=== PATIENT | female | born 1965 | race Caucasian/White ===

== ENCOUNTER 2023-05-05 09:06 | Emergency (ER) | payer SELFPAY ==
--- NOTE | ~2023-05-05 | XR_ITS ---
XR finger 1st RT min 2V DATE: 05/05/2023 09:38 INDICATION: Smashed finger intra-articular on 05/04/2023. Distal first digit pain TECHNIQUE: 3 views of first digit COMPARISON: None FINDINGS: No fracture or dislocation, periosteal reaction or bone destruction, radiopaque soft tissue foreign body or subcutaneous emphysema. IMPRESSION: Negative Reviewed, dictated and finalized at location B. IMPRESSION: Negative
[2023-05-05 09:14] VITALS: BP 145/75; PULSE 77; RESP 20; TEMP 36.9; O2SAT 100
--- NOTE | 2023-05-05 10:06 | ED.UPPEXIN ---
HPI - Extremity Injury (Upper) General Chief Complaint: Extremity Injury, Upper Stated Complaint: right thumb injury Time Seen by Provider: 05/05/23 10:06 Source: patient, RN notes reviewed and old records reviewed Mode of arrival: ambulatory Limitations: no limitations History of Present Illness HPI narrative: 57 year old female who presents to [facility] care with complaints of smashing right thumb in her truck door yesterday around 1700 with swelling and bruising to distal right thumb with bruising noted to base of nail and in nail. Patient does have dip nail application in place to nail but can see bruising of nail at top of nail bed. Patient has full movement of her right thumb with no obvious deformity.Patient reports throbbing pain at nail area.Patient has been using cold therapy to her right thumb. MD complaint: injury to: hand (right thumb) Onset (ago): day(s) (yesterday at 1700) Other injuries: none Handedness: right Place: outdoors Severity scale (1-10): 8 Treatments prior to arrival: cold therapy Related Data Allergies Allergy/AdvReac Type Severity Reaction Status Date / Time No Known Allergies Allergy Verified 05/05/23 09:21 Review of Systems Review of Systems: CONSTITUTIONAL: Denies fever, chills, or sweats. EYES: Denies visual changes, redness, or discharge. ENT: Denies rhinorrhea, congestion, sore throat, or otalgia. CARDIOVASCULAR: Denies chest pain, palpitations, or edema. RESPIRATORY: Denies cough or dyspnea. GASTROINTESTINAL: Denies abdominal pain, nausea, vomiting, or diarrhea. GENITOURINARY: Denies dysuria or hematuria. SKIN: Denies rash or itching. MUSCULOSKELETAL: Denies back pain,positive for right thumb pain and swelling or myalgia. NEUROLOGIC: Denies headache, numbness, or weakness. PSYCHIATRIC: Denies anxiety or depression. All systems reviewed & are unremarkable except as noted in HPI and below PMFSH Comments At time of signature, agree with nursing past medical, surgical, social and family history. There is no relevant family history pertinent to the presenting complaint Exam Narrative: GENERAL: Well-appearing, well-nourished, and in no acute distress. HEAD: Normocephalic, atraumatic. EYES: PERRLA and EOMI. ENT: Nares clear, no rhinorrhea or epistaxis. Mucous membranes moist. NECK: Supple. no lymphadenopathy CHEST: Clear to auscultation. No respiratory distress.SAO2 100% on room air HEART: Regular rate and rhythm. No murmur heard. Normal peripheral pulses. ABDOMEN: Soft, nontender, nondistended, normal active bowel sounds. EXTREMITIES: Normal range of motion. No edema.Exception noted to swelling bruising and pain to right thumb with bruising to base of thumb nail and in nail.Circulation sensation and mobility intact to right thumb SKIN: Warm, dry, no rash. NEURO: No focal deficits. Alert and oriented x3. Course Course Emergency Course: Patient is aware of diagnosis, understands and agrees to treatment plan.? Anticipatory guidance given.? Patient agrees to follow-up as directed and is aware of reasons to seek care at the emergency department. Portions of this record may have been created with voice recognition software Level of Care: Express Care Visit Vital Signs Vital signs: Vital Signs Temperature 36.9 C 05/05/23 09:14 Pulse Rate 77 05/05/23 09:14 Respiratory Rate 20 05/05/23 09:14 Blood Pressure 145/75 H 05/05/23 09:14 Pulse Oximetry 100 05/05/23 09:14 Oxygen Delivery Room Air 05/05/23 09:14 Temperature 36.9 C 05/05/23 09:14 Pulse Rate 77 05/05/23 09:14 Respiratory Rate 20 05/05/23 09:14 Blood Pressure 145/75 H 05/05/23 09:14 Pulse Oximetry 100 05/05/23 09:14 Oxygen Delivery Room Air 05/05/23 09:14 Reviewed Procedures Other Procedure Procedure 1: Other Procedure: 1030 Using cautery pin 2 small holes make in the top area of nail above dip application which is on thumb nail. Patient tolerated well with blood noted to oo
== END 2023-05-05 11:04 | disposition home or self-care (01) ==
PROVIDERS: Emergency Provider Registered Nurse
DX: S60.111A Contusion of right thumb with damage to nail, initial encounter (principal); X58.XXXA Exposure to other specified factors, initial encounter
CPT/HCPCS: 11740; 73140; 99213; G0463